=== PATIENT | male | born 1960 | race Caucasian/White ===

== ENCOUNTER → 2016-11-15 | Outpatient (CLI) | payer BC ==
[~2016-11-15] MED LIST: MELO-249 PO; METO50TA7 PO; MULT-642 PO
--- NOTE | 2016-11-15 09:23 | Diagnostic Imaging Report ---
PROCEDURE: US Thyroid. TECHNIQUE: Multiple real-time grayscale images were obtained of the thyroid in various projections. INDICATION: Thyroid nodules. Exam compared 06/14/2016. FINDINGS: Right lobe subcentimeter nodules involve lower greater than upper pole the largest hypoechoic solid nodule was 8 mm unchanged. Largest left thyroid lobe is again found in its lower pole, solid and vascularized measuring 2.6 x 1.7 x 1.9 cm. There is a well-defined circumscribed border and a narrow zone of transition. Dominant mass not significantly changed. Partially cystic nodule in the lower pole of 6 mm stable. A solid nodule in the upper pole of the left lobe 1.1 cm stable. IMPRESSION: Bilateral thyroid nodules greater left, the dominant mass in the left lower pole unchanged from prior with circumscribed well-defined borders. No new mass. Dictated by: Dictated on workstation # [id number]
== END ==
LOC: RAD 08:16
PROVIDERS: ATTEND Otolaryngology
DX: E07.9 Disorder of thyroid, unspecified (principal); E04.1 Nontoxic single thyroid nodule
CPT/HCPCS: 76536